=== PATIENT | female | born 2000 | race Caucasian/White ===

== ENCOUNTER 2021-02-07 15:12 | Emergency (ER) | payer OTHER ==
[~2021-02-07] VITALS: Ht 162.6 cm; Wt 72.6 kg
[2021-02-07] MEDS ORDERED: CIPRO500 MG PO (20:52)
== END 2021-02-07 22:53 | disposition home or self-care (01) ==
LOC: ER 15:12 → EMR PED 15:45 → ER 15:45 → EMR PED 22:53
DX: N30.01 Acute cystitis with hematuria (principal); R30.0 Dysuria